=== PATIENT | male | born 1935 | race Caucasian/White ===

== ENCOUNTER 2017-08-09 22:23 | Observation (INO) | payer MEDICARE ==
[2017-08-09] MEDS ORDERED: NS 0.9% 1000 ML* 1,000 ML IV SCH (22:45)
[2017-08-09 23:27] LABS: Hematocrit 42 % (42-52); Mean Corpuscular HGB Conc 34 g/dl (31-36); Mean Corpuscular Hemoglobin 31 pg (27-31); Mean Corpuscular Volume 92 fL (80-94); Mean Platelet Volume 8 um3 (7.4-10.4); Red Blood Count 4.55 10^6/ul (4.0-5.4); Red Cell Distribution Width 14 % (10.5-15); White Blood Count 11.6 10^3/ul (3.5-10.8)
[2017-08-09 23:41] LABS: Acetaminophen < 15 mcg/mL; Alcohol 20 mg/dL (<10); Salicylate < 2.50 mg/dL (<30)
[2017-08-09 23:42] LABS: ALT 24 U/L (7-52); AST 27 U/L (13-39); Albumin 4.3 g/dL (3.2-5.2); Alkaline Phosphatase 62 U/L (34-104); Anion Gap 10 mmol/L (2-11); Blood Urea Nitrogen 22 mg/dL (6-24); C Reactive Protein 9.29 mg/L (< 5.00); CO2 Carbon Dioxide 22 mmol/L (22-32); Calcium 9.5 mg/dL (8.6-10.3); Chloride 98 mmol/L (101-111); Creatine Kinase 52 U/L (10-223); EGFR African American 73.1 (>60); EGFR Non-African American 56.9 (>60); Globulin 2.9 g/dL (2-4); Glucose 105 mg/dL (70-100); Lipase 11 U/L (11.0-82.0); Magnesium 2.3 mg/dL (1.9-2.7); Potassium 4.2 mmol/L (3.5-5.0); Sodium 130 mmol/L (133-145); Total Protein 7.2 g/dL (6.4-8.9)
[2017-08-09 23:51] LABS: TSH (Thyroid Stimulating Horm) 5.11 mcIU/mL (0.34-5.60)
[2017-08-10] MEDS ORDERED: Iodixanol* (CONTRAST) 320 MG/ML 100 ML SDV IV ONE (00:52)
[2017-08-10] MEDS ORDERED: Acetaminophen TAB* 325 MG PO ONE (03:22)
[2017-08-10 03:49] LABS: Urine Bilirubin Negative (Negative); Urine Glucose Negative (Negative); Urine Nitrite Negative (Negative)
--- NOTE | 2017-08-10 04:06 | HP ---
H&P (Free Text) History and Physical: PCP: Agustin Louis MD Hematology: Angie Allen MD Cardiology: Dr Moss Date/Time: 08/10/2017 0424 CC: abdominal pain, syncope HPI: Mr Rosas is an 82YO male who went out to let his horses out, but was not exerting himself when he developed non-radiating band-like upper abdominal sharp/cramping pain. He walked back to his house and sat down. The next thing he knew he woke up thinking he had broken out in a sweat, but upon arrival to ED it was determined he had vomited. He thinks he may have lost control of his bladder as well, but is uncertain. He denies chest pain, SOB, palpitations, nausea, light-headedness, F/C, cough, congestion, or other issues. He has been having trouble with constipation and is considering starting a stool softener. He has no history of similar. 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 anxiety BPH HLD detached retina L1/T12 compression FXs temporal arteritis Ambulatory Orders Cholecalciferol [Vitamin D] 1,000 unit PO QAM 11/27/12 Folic Acid 1 mg PO QAM 11/27/12 Methotrexate TAB* 10 mg PO WEEKLY 11/27/12 Oyster Shell [Calcium] 2 mg PO QAM 11/27/12 Prednisone 5 mg PO QAM 11/27/12 Tamsulosin CAP* [Flomax CAP*] 0.4 mg PO QAM 11/27/12 Timolol 0.5% OPTH.MAYA* [Timoptic 0.5% Opth*] 1 drop BOTH EYES QAM 11/27/12 Travoprost Z 0.004% OPHTH (NF) [Travatan Z 0.004% OPTH (NF)] 1 drop BOTH EYES BEDTIME 11/27/12 Venlafaxine HCl [Venlafaxine HCl ER] 300 mg PO QAM 11/27/12 Allergies No Known Allergies Allergy (Verified 08/10/17 02:54) PSurgHx ORIF R elbow septoplasty benign tumor excision R submandibular tonsillectomy OU cataracts SocHx: quit pipe ~10 years ago, 5-6 beers/day, no recreational drugs; , lives alone; DNR/I code status, MOLST filled out FamHx: Mother passed in her 70s of "natural causes". Father passed at 89 of " old age". Siblings: a brother passed of COPD, another is alive with COPD ROS: as above, otherwise reviewed and all were negative vitals: Vital Signs Temp 36.2 C 08/09/17 22:30 Pulse 93 08/10/17 04:51 Resp 18 08/10/17 04:51 BP 121/76 08/10/17 04:51 Pulse Ox 94 08/10/17 04:51 Intake & Output 08/09/17 08/09/17 08/10/17 11:59 23:59 11:59 Intake Total 1000 Balance 1000 Weight 77.111 kg Intake: IV Fluids 1000 Constitutional: NAD, normally developed, well-nourished white male HEENM: atraumatic; sclera/conjunctiva: non-icteric/clear; hearing: clinically intact; oropharynx: clear, mucosa moist Neck: soft tissue: non-tender; thyroid: normal Pulmonary: clear to auscultation bilaterally, good aeration, no accessory muscle use CV: RR/RR, normal S1S2, no carotid bruit, no jugular venous distention, 2+ B DP/ PT, no edema Abdominal: soft, non-distended, non-tender, no rebound/guarding/rigidity, normoactive bowel sounds, no hepatosplenomegaly or masses, no costovertebral angle tenderness Musculoskeletal: general: no palpable tenderness or restricted motion noted Integumental: normal appearance and texture of exposed skin Psychiatric orientation: AA&O to PPS affect: calm mood: cooperative eye contact: good content: reliable responses: timely insight: good Testing: Laboratory Results - last 24 hr 08/09/17 08/09/17 08/09/17 23:05 23:05 23:05 WBC 11.6 H RBC 4.55 Hgb 14.0 Hct 42 MCV 92 MCH 31 MCHC 34 RDW 14 Plt Count 231 MPV 8 Neut % (Auto) 78.4 Lymph % (Auto) 11.8 L [place] % (Auto) 8.8 Eos % (Auto) 0.3 Baso % (Auto) 0.7 Absolute Neuts (auto) 9.1 H Absolute Lymphs (auto) 1.4 Absolute Monos (auto) 1.0 H Absolute Eos (auto) 0 Absolute Basos (auto) 0.1 Absolute Nucleated RBC 0 Nucleated RBC % 0 INR (Anticoag Therapy) 0.93 APTT 26.7 D-Dimer, Quantitative < 200 Sodium 130 L Potassium 4.2 Chloride 98 L Carbon Dioxide 22 Anion Gap 10 BUN 22 Creatinine 1.22 H Est GFR ( Amer) 73.1 Est GFR (Non-Af Amer) 56.9 BUN/Creatinine Ratio 18.0 Glucose 105 H Lactic Acid Calcium 9.5 Magnesium 2.3 Total Bilirubin 0.40 AST 27 ALT 24 Alkaline Phosphatase 62 Total Creatine Kinase 52 CK-MB (CK-2) 3.2 Troponin I 0.00 C-Reactive Protein 9.29 H Total Protein 7.2 Albumin 4.3 Globulin 2.9 Albumin/Globulin Ratio 1.5 Lipase 11 TSH 5.11 Urine Color Urine Appearance Urine pH Ur Specific [place] Urine Protein Urine Ketones Urine Blood Urine Nitrate Urine Bilirubin Urine Urobilinogen Ur Leukocyte Esterase Urine Glucose Salicylates < 2.50 Acetaminophen < 15 Serum Alcohol 20 H 08/09/17 08/10/17 23:05 03:30 WBC RBC Hgb Hct MCV MCH MCHC RDW Plt Count MPV Neut % (Auto) Lymph % (Auto) [place] % (Auto) Eos % (Auto) Baso % (Auto) Absolute Neuts (auto) Absolute Lymphs (auto) Absolute Monos (auto) Absolute Eos (auto) Absolute Basos (auto) Absolute Nucleated RBC Nucleated RBC % INR (Anticoag Therapy) APTT D-Dimer, Quantitative Sodium Potassium Chloride Carbon Dioxide Anion Gap BUN Creatinine Est GFR ( Amer) Est GFR (Non-Af Amer) BUN/Creatinine Ratio Glucose Lactic Acid 2.0 Calcium Magnesium Total Bilirubin AST ALT Alkaline Phosphatase Total Creatine Kinase CK-MB (CK-2) Troponin I C-Reactive Protein Total Protein Albumin Globulin Albumin/Globulin Ratio Lipase TSH Urine Color Straw Urine Appearance Clear Urine pH 6.0 Ur Specific [place] 1.040 H Urine Protein Negative Urine Ketones 1+ H Urine Blood Negative Urine Nitrate Negative Urine Bilirubin Negative Urine Urobilinogen Negative Ur Leukocyte Esterase Negative Urine Glucose Negative Salicylates Acetaminophen Serum Alcohol ECG, personally reviewed: 1st degree AV block, rate 74, no ischemia CXR, personally reviewed: no acute process CTA chest/abd/pel, personally reviewed: 1.1cm nodule or nodular scar right upper lobe, advise follow up. No pulmonary embolism. No aortic dissection or aneurysm. No pneumonia or pleural effusions. Emphysematous changes. Coronary artery disease. Gastroesophageal reflux. Probable incidental duodenal diverticulum. No bowel obstruction, colitis, free fluid, or free air. Normal appendix. Diverticulosis colon without acute diverticulitis. Unremarkable pancreas, kidneys, and gallbladder. Small bowel projecting into bilateral inguinal region hernias, which also contain fat. Bilateral L5 spondylosis with grade 1 anterolisthesis L5/S1. Impression: 82M presenting with abdominal pain and suspected syncope DIAGNOSIS & PLAN Primary abdominal pain and suspected syncope, dDX: likely vasovagal syncope vs arrhythmia vs less likely ACS or seizure : telemetry : trend troponin : check ECHO to evaluate for valvular issues : consider GI consult if abdominal pain returns & work up is otherwise negative : supportive care Secondary constipation : start docusate elevated serum [place] & Lambda light chains elevated serum IgA : continue outpatient surveillance with Angie Allen MD advanced glaucoma : continue outpatient surveillance BPH : continue tamsulosin HLD : heart healthy no caffeine diet temporal arteritis : continue prednisone Admission Rational: observation for abdominal pain & syncope DVTp: heparin SQ Code Status: DNR/I, MOLST filled out HCP: Thao Trevino
[2017-08-10] MEDS ORDERED: Albuterol 2.5 MG/3 ML NEB.SOL* (0.083%) INH PRN (04:36)
[2017-08-10] MEDS ORDERED: Acetaminophen TAB* 325 MG PO PRN (04:36)
[2017-08-10] MEDS ORDERED: Ondansetron INJ* 2 MG/ML VIAL IV PRN (04:36)
[2017-08-10] MEDS ORDERED: NS 0.9% 1000 ML* 1,000 ML IV SCH (04:45)
[2017-08-10] MEDS ORDERED: Omeprazole CAP* 20 MG PO SCH (06:00)
[2017-08-10] MEDS ORDERED: Heparin VIAL(*) 5000 UNITS/ML VIAL (FIVE THOUSAND) SUBCUT SCH (06:00)
[2017-08-10 06:22] LABS: Hematocrit 42 % (42-52); Hemoglobin 13.9 g/dl (14.0-18.0); Mean Corpuscular HGB Conc 33 g/dl (31-36); Mean Corpuscular Hemoglobin 30 pg (27-31); Mean Corpuscular Volume 91 fL (80-94); Mean Platelet Volume 8 um3 (7.4-10.4); Red Blood Count 4.57 10^6/ul (4.0-5.4); Red Cell Distribution Width 14 % (10.5-15); White Blood Count 11.9 10^3/ul (3.5-10.8)
--- NOTE | 2017-08-10 06:41 | ED ---
Lorna Estes Rebecca, scribed for Himanshu García MD on 08/09/17 at 2249 . Abdominal Pain/Male - HPI Summary HPI Summary: This is an 82 yo male presenting with complaints of upper abdominal pain/lower chest pain that began around 1930 this evening. He reports that he was sitting in his chair just watching tv when he developed the pain suddenly. He rates the pain was a 2/10 at onset. He also notes associated diaphoresis before passing out. He vomited on himself as well, but reports he does not remember this. The pain has resolved at this point. He denies any palpitations prior to passing out. - History of Current Complaint Chief Complaint: EDAbdPain Stated Complaint: CHEST PAIN Time Seen by Provider: 08/09/17 22:37 Hx Obtained From: Patient Onset/Duration: Sudden Onset Timing: Lasting Minutes Severity Initially: Mild Severity Currently: None Pain Intensity: 2 Pain Scale Used: 0-10 Numeric Location: Epigastric, Other - Lower chest pain Radiates: No Aggravating Factor(s): Nothing Alleviating Factor(s): Nothing Associated Signs And Symptoms: Positive: Diaphoresis, Nausea, Vomiting - Allergies/Home Medications Allergies/Adverse Reactions: Allergies Allergy/AdvReac Type Severity Reaction Status Date / Time No Known Allergies Allergy Verified 08/10/17 02:54 PMH/Surg Hx/FS Hx/Imm Hx Cardiovascular History: Denies: Hx Myocardial Infarction Musculoskeletal History: Reports: Hx Arthritis Sensory History: Reports: Hx Contacts or Glasses - GLASSES, Hx Glaucoma Denies: Hx Hearing Aid Opthamlomology History: Reports: Hx Contacts or Glasses - GLASSES, Hx Glaucoma - Surgical History Surgery Procedure, Year, and Place: 1990 ? PAROTID GLAND REMOVED [facility]. 1994 SEPTOPLASTY [facility]. 2005 RT HAND DUPUYTRENS AND ELBOW [facility]. 2005 LT HAND [facility]. 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 UP ARTIST Hx Anesthesia Reactions: No - Family History Known Family History: Negative: Cardiac Disease - Social History Alcohol Use: Daily Substance Use Type: Reports: None Smoking Status (MU): Never Smoked Tobacco Review of Systems Positive: Chest Pain Positive: Abdominal Pain, Vomiting Positive: Other - diaphoresis All Other Systems Reviewed And Are Negative: Yes Physical Exam - Summary Physical Exam Summary: General: well-appearing, no pain distress Skin: warm, color reflects adequate perfusion, dry Head: normal Eyes: EOMI, KELLEN ENT: normal Neck: supple, nontender Respiratory: CTA, breath sounds present Cardiovascular: RRR Abdomen: soft, mild lower abdominal tenderness. Normal bowel sounds. Bowel: present Musculoskeletal: normal, strength/ROM intact Neurological: normal, sensory/motor intact, A&O x3 Psychological: affect/mood appropriate Vital Signs On Initial Exam: Initial Vitals Temp Pulse Resp BP Pulse Ox 97.1 F 70 18 119/74 97 08/09/17 22:30 08/09/17 22:30 08/09/17 22:30 08/09/17 22:30 08/09/17 22:30 Diagnostics - Vital Signs Vital Signs Temp Pulse Resp BP Pulse Ox 08/09/17 22:30 97.1 F 70 18 119/74 97 - Laboratory Lab Results: Lab Results 08/09/17 08/09/17 08/09/17 Range/Units 23:05 23:05 23:05 WBC 11.6 H (3.5-10.8) 10^3/ul RBC 4.55 (4.0-5.4) 10^6/ul Hgb 14.0 (14.0-18.0) g/dl Hct 42 (42-52) % MCV 92 (80-94) fL MCH 31 (27-31) pg MCHC 34 (31-36) g/dl RDW 14 (10.5-15) % Plt Count 231 (150-450) 10^3/ul MPV 8 (7.4-10.4) um3 Neut % (Auto) 78.4 (38-83) % Lymph % (Auto) 11.8 L (25-47) % [place] % (Auto) 8.8 (1-9) % Eos % (Auto) 0.3 (0-6) % Baso % (Auto) 0.7 (0-2) % Absolute Neuts (auto) 9.1 H (1.5-7.7) 10^3/ul Absolute Lymphs (auto) 1.4 (1.0-4.8) 10^3/ul Absolute Monos (auto) 1.0 H (0-0.8) 10^3/ul Absolute Eos (auto) 0 (0-0.6) 10^3/ul Absolute Basos (auto) 0.1 (0-0.2) 10^3/ul Absolute Nucleated RBC 0 10^3/ul Nucleated RBC % 0 INR (Anticoag Therapy) 0.93 (0.89-1.11) APTT 26.7 (26.0-36.3) seconds D-Dimer, Quantitative < 200 (Less Than 230) ng/mL Sodium 130 L (133-145) mmol/L Potassium 4.2 (3.5-5.0) mmol/L Chloride 98 L (101-111) mmol/L Carbon Dioxide 22 (22-32) mmol/L Anion Gap 10 (2-11) mmol/L BUN 22 (6-24) mg/dL Creatinine 1.22 H (0.67-1.17) mg/dL Est GFR ( Amer) 73.1 (>60) Est GFR (Non-Af Amer) 56.9 (>60) BUN/Creatinine Ratio 18.0 (8-20) Glucose 105 H (70-100) mg/dL Lactic Acid (0.5-2.0) mmol/L Calcium 9.5 (8.6-10.3) mg/dL Magnesium 2.3 (1.9-2.7) mg/dL Total Bilirubin 0.40 (0.2-1.0) mg/dL AST 27 (13-39) U/L ALT 24 (7-52) U/L Alkaline Phosphatase 62 (34-104) U/L Total Creatine Kinase 52 (10-223) U/L CK-MB (CK-2) 3.2 (0.6-6.3) ng/mL Troponin I 0.00 (<0.04) ng/mL C-Reactive Protein 9.29 H (< 5.00) mg/L Total Protein 7.2 (6.4-8.9) g/dL Albumin 4.3 (3.2-5.2) g/dL Globulin 2.9 (2-4) g/dL Albumin/Globulin Ratio 1.5 (1-3) Lipase 11 (11.0-82.0) U/L TSH 5.11 (0.34-5.60) mcIU/mL Urine Color Urine Appearance Urine pH (5-9) Ur Specific [place] (1.010-1.030) Urine Protein (Negative) Urine Ketones (Negative) Urine Blood (Negative) Urine Nitrate (Negative) Urine Bilirubin (Negative) Urine Urobilinogen (Negative) Ur Leukocyte Esterase (Negative) Urine Glucose (Negative) Salicylates < 2.50 (<30) mg/dL Acetaminophen < 15 mcg/mL Serum Alcohol 20 H (<10) mg/dL 08/09/17 08/10/17 Range/Units 23:05 03:30 WBC (3.5-10.8) 10^3/ul RBC (4.0-5.4) 10^6/ul Hgb (14.0-18.0) g/dl Hct (42-52) % MCV (80-94) fL MCH (27-31) pg MCHC (31-36) g/dl RDW (10.5-15) % Plt Count (150-450) 10^3/ul MPV (7.4-10.4) um3 Neut % (Auto) (38-83) % Lymph % (Auto) (25-47) % [place] % (Auto) (1-9) % Eos % (Auto) (0-6) % Baso % (Auto) (0-2) % Absolute Neuts (auto) (1.5-7.7) 10^3/ul Absolute Lymphs (auto) (1.0-4.8) 10^3/ul Absolute Monos (auto) (0-0.8) 10^3/ul Absolute Eos (auto) (0-0.6) 10^3/ul Absolute Basos (auto) (0-0.2) 10^3/ul Absolute Nucleated RBC 10^3/ul Nucleated RBC % INR (Anticoag Therapy) (0.89-1.11) APTT (26.0-36.3) seconds D-Dimer, Quantitative (Less Than 230) ng/mL Sodium (133-145) mmol/L Potassium (3.5-5.0) mmol/L Chloride (101-111) mmol/L Carbon Dioxide (22-32) mmol/L Anion Gap (2-11) mmol/L BUN (6-24) mg/dL Creatinine (0.67-1.17) mg/dL Est GFR ( Amer) (>60) Est GFR (Non-Af Amer) (>60) BUN/Creatinine Ratio (8-20) Glucose (70-100) mg/dL Lactic Acid 2.0 (0.5-2.0) mmol/L Calcium (8.6-10.3) mg/dL Magnesium (1.9-2.7) mg/dL Total Bilirubin (0.2-1.0) mg/dL AST (13-39) U/L ALT (7-52) U/L Alkaline Phosphatase (34-104) U/L Total Creatine Kinase (10-223) U/L CK-MB (CK-2) (0.6-6.3) ng/mL Troponin I (<0.04) ng/mL C-Reactive Protein (< 5.00) mg/L Total Protein (6.4-8.9) g/dL Albumin (3.2-5.2) g/dL Globulin (2-4) g/dL Albumin/Globulin Ratio (1-3) Lipase (11.0-82.0) U/L TSH (0.34-5.60) mcIU/mL Urine Color Straw Urine Appearance Clear Urine pH 6.0 (5-9) Ur Specific [place] 1.040 H (1.010-1.030) Urine Protein Negative (Negative) Urine Ketones 1+ H (Negative) Urine Blood Negative (Negative) Urine Nitrate Negative (Negative) Urine Bilirubin Negative (Negative) Urine Urobilinogen Negative (Negative) Ur Leukocyte Esterase Negative (Negative) Urine Glucose Negative (Negative) Salicylates (<30) mg/dL Acetaminophen mcg/mL Serum Alcohol (<10) mg/dL Result Diagrams: 08/10/17 06:05 08/09/17 23:05 Lab Statement: Any lab studies that have been ordered have been reviewed, and results considered in the medical decision making process. - Radiology CXR Xray Interpretation: Positive (See Comments) - Small left pleural effusion. No other changes. Radiology Interpretation Completed By: ED Physician - CT CT Abd/Pelvis/Chest CT Interpretation: No Acute Changes - Chest: 1.1 cm nodule or nodular scar right upper lobe, advise follow up. No pulmonary embolism. No aortic dissection or aneurysm. No pneumonia or pleural effusions. Emphysematous changes. Coronary artery disease. Gastroesophageal reflux. Abdomen/Pelvis Probably incidental duodenal diverticulum. No bowel obstruction, colitis, free fluid or free air. Normal appendix. Diverticulosis colon without acute diverticulitis. Unremarkable pancreas, kidneys and gallbladder. Small bowel projecting into bilateral inguinal region hernias, which contain fat. 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 NO CRITICAL CARE TIME. - Diagnoses Provider Diagnoses: Syncope, Abdominal pain Discharge - Discharge Plan Condition: Stable Disposition: ADMITTED TO [facility] The documentation as recorded by the Lorna medel Rebecca accurately reflects the service I personally performed and the decisions made by , Himanshu García MD.
--- NOTE | 2017-08-10 07:28 | RAD ---
INDICATION: Syncope. COMPARISON: Comparison is made with a prior chest x-ray study from January 04, 2005. TECHNIQUE: A portable view of the chest was obtained. FINDINGS: Cardiac and mediastinal contours appear to be within normal limits. The lungs are clear. No pleural effusion is seen. IMPRESSION: NO EVIDENCE FOR ACUTE DISEASE.
[2017-08-10] MEDS ORDERED: Venlafaxine EXT RELEASE CAP* 75 MG PO SCH (09:00)
[2017-08-10] MEDS ORDERED: Tamsulosin CAP* 0.4 MG PO SCH (09:00)
[2017-08-10] MEDS ORDERED: Docusate CAP* 100 MG PO SCH (09:00)
[2017-08-10] MEDS ORDERED: Timolol 0.5% OPTH.SOL* BTL BOTH EYES SCH (09:00)
--- NOTE | 2017-08-10 09:21 | RAD ---
Indication: Lower chest and upper abdominal pain with syncope. Contrast: Administered 97.3 ml of VISAPAQUE 320 mg/ml CTA of the chest was performed after IV contrast administration. CT of the abdomen and pelvis was performed. The pulmonary arterial tree is well opacified. There are no filling defects present to suggest pulmonary embolus. The heart demonstrates no pericardial effusion. The trachea and major bronchi appear patent. Left basilar atelectasis is noted. Emphysematous changes are noted. The thoracic aorta demonstrates no aneurysmal dilatation or aortic dissection. CT of the abdomen and pelvis demonstrates the liver to be normal in size. No focal lesions or intrahepatic duct dilatation is noted. The gallbladder demonstrates no calcified gallstones. No pericholecystic fluid or wall thickening is noted. The spleen is normal in size. No adrenal lesions are noted. The kidneys demonstrate symmetric nephrograms without focal lesions. Aorta and inferior vena cava are unremarkable. No retroperitoneal lymphadenopathy is noted. No dilated loops of bowel are noted. The colon is filled with stool. CT of the pelvis demonstrates no retroperitoneal or pelvic lymphadenopathy. The urinary bladder is unremarkable. There are bilateral inguinal hernias noted. The prostate is prominent in size. IMPRESSION: 1. No evidence of pulmonary embolus is noted. 2. Nodular scarring is noted in the upper lobes bilaterally. Bibasilar atelectasis is noted. No evidence of aortic dissection is noted. 3. Bilateral inguinal hernias are noted. No evidence of bowel obstruction is noted.
[2017-08-10] MEDS ORDERED: Sucralfate TAB* 1 GM PO SCH (11:30)
[2017-08-10 12:12] LABS: Hematocrit 43 % (42-52); Hemoglobin 14.5 g/dl (14.0-18.0); Mean Corpuscular HGB Conc 33 g/dl (31-36); Mean Corpuscular Hemoglobin 31 pg (27-31); Mean Corpuscular Volume 92 fL (80-94); Mean Platelet Volume 8 um3 (7.4-10.4); Red Blood Count 4.72 10^6/ul (4.0-5.4); Red Cell Distribution Width 14 % (10.5-15); White Blood Count 9.9 10^3/ul (3.5-10.8)
[2017-08-10 12:26] LABS: EGFR African American 98.8 (>60); EGFR Non-African American 76.8 (>60)
--- NOTE | 2017-08-10 12:34 | ECHO ---
Patient: GAETANO SIFUENTES [facility] Rec#: [id number] : 1935 Date: 08/10/2017 Age: 82y Height: 172.72 cm / 68.0 in Weight: 77.11 kg / 170.0 lbs Sex: M BSA: 1.91 Room#: ICU7 Admit Date#: 08/10/2017 Type: Inpatient Referring: Chris Dunlap MD Reading: Brisa Christopher MD Bed Machine Operator: Jill Bartholomew HEATHER CC: Alexis Louis MD Transthoracic Echocardiogram Indication: SYNCOPE BP: 136/76 HR: 65 Rhythm: NSR Findings History: Anxiety,HLD,syncope. Technical Comments: The study quality is good. Completed at 0900. Left Ventricle: The left ventricular chamber size is normal. Global left ventricular wall motion and contractility are within normal limits. There is normal left ventricular systolic function. The estimated ejection fraction is 60-65%. Abnormal left ventricular diastolic function is observed. Left Atrium: The left atrial chamber size is normal. Right Ventricle: The right ventricular cavity size is normal. The right ventricular global systolic function is normal. Right Atrium: The right atrial cavity size is normal. Aortic Valve: The aortic valve leaflets are mildly thickened. There is mild aortic regurgitation. There is no evidence of aortic stenosis. Mitral Valve: The mitral valve leaflets are mildly thickened. There is a trace of mitral regurgitation. There is no evidence of mitral stenosis. Tricuspid Valve: The tricuspid valve leaflets are normal. There is mild tricuspid regurgitation. No pulmonary hypertension is noted. There is no tricuspid stenosis. Pulmonic Valve: The pulmonic valve appears normal. There is trace to mild pulmonic regurgitation. There is no pulmonic stenosis. Pericardium: A pericardial fat pad is visualized. Aorta: There is mild dilatation of the ascending aorta. There is no dilatation of the aortic arch. There is no dilation of the aortic root. Pulmonary Artery: The main pulmonary artery appears normal. Venous: The venous system is not well visualized. Conclusions Global left ventricular wall motion and contractility are within normal limits. The estimated ejection fraction is 60-65%. Abnormal left ventricular diastolic function is observed. The right ventricular global systolic function is normal. There is mild aortic regurgitation. There is a trace of mitral regurgitation. There is mild tricuspid regurgitation. No pulmonary hypertension is noted. Mild dilatation of the ascending aorta 3.6 cm. No prior study to compare. Measurements Name Value Normal Range RVIDd (AP) 2D 2.7 cm (0.9 - 2.6) RVDdMajor (2D) 3.3 cm (2.2 - 4.4) RAd ISD 4CH 4.4 cm (3.4 - 4.9) RA (A4C)W 3.6 cm (2.9 - 4.6) IVSd (2D) 0.8 cm (0.6 - 1) LVPWd (2D) 0.9 cm (0.6 - 1) LVIDd (2D) 3.5 cm (3.6 - 5.4) LVIDs (2D) 1.8 cm - LV FS (2D) 49 % (25 - 45) Aortic Annulus 1.7 cm (1.4 - 2.6) Ao root diameter (2D) 3.1 cm (2.1 - 3.5) Ascending Ao 3.6 cm (2.1 - 3.4) Aortic arch 2.2 cm (1.8 - 3.4) Descending Ao 0.5 cm - LA dimension (AP) 2D 3.6 cm (2.3 - 3.8) LAd ISD 4CH 4.3 cm (2.9 - 5.3) LA ISD 4CH W 3.1 cm (2.5 - 4.5) Name Value Normal Range LA ESV SP 4CH (A/L) 24 ml - LA ESV SP 2CH (A/L) 29 ml - LA ESV BP (A/L) 27 ml - LA ESV BP (A/L) index 14.23 ml/m2 - LA ESV SP 4CH (MOD) 20 ml - LA ESV SP 2CH (MOD) 25 ml - Name Value Normal Range MV E-wave Vmax 0.7 m/sec - MV deceleration time 179 msec - MV A-wave Vmax 1 m/sec - MV E:A ratio 0.66 ratio - LV septal e' Vmax 0.06 m/sec - LV lateral e' Vmax 0.07 m/sec - LV E:e' septal ratio 11.67 ratio - LV E:e' lateral ratio 10 ratio - Name Value Normal Range AV Vmax 1.2 m/sec - AV VTI 28.7 cm - AV peak gradient 5.51 mmHg - AV mean gradient 3.18 mmHg - LVOT diameter 2 cm - LVOT Vmax 0.9 m/sec - LVOT VTI 21.6 cm - LVOT peak gradient 3.12 mmHg - LVOT mean gradient 1.48 mmHg - FERNANDA (continuity Vmax) 2.3 cm2 - FERNANDA (continuity VTI) 2.3 cm2 - AR PHT 477 msec - AR peak gradient 29.28 mmHg - Name Value Normal Range TR Vmax 2.4 m/sec - TR peak gradient 24 mmHg - RAP 8 mmHg - RVSP 32 mmHg - Name Value Normal Range PV Vmax 0.7 m/sec - PV peak gradient 2.13 mmHg -
[2017-08-10 13:03] VITALS: BP 126/62
--- NOTE | 2017-08-10 13:07 | DCNOTE ---
Patient seen this morning. Reported feeling well. Had some mild recurrence of abdominal pain overnight that resolved with tylenol. Says he drinks 6 beers/ night, also on steroids for temporal arteritis. Ambulated around the unit with no issues, weaned off of O2. On exam, RRR, s1 and s2 present, no m/g/r, abd soft, NTND, BS+, lungs CTA B/L, no w/r/r Suspect patient may have underlying gastritis (from EtOH and steroids) that caused the pain. ?possible syncopal episode but echo and tele unremarkable. Recommended decrease in EtOH use, will also increase Protonix temporarily. Needs to f/u with PCP.
[2017-08-10] MEDS ORDERED: Latanoprost 0.005%* 2.5 ml BTL BOTH EYES SCH (21:00)
--- NOTE | 2017-08-11 06:42 | DS ---
CC: Dr. Louis * DISCHARGE SUMMARY: DATE OF ADMISSION: 08/09/17 DATE OF DISCHARGE: 08/10/17 PRIMARY CARE PHYSICIAN: Dr. Louis. PRINCIPAL DISCHARGE DIAGNOSES: 1. Gastritis. 2. Abdominal pain. 3. Questionable syncope. 4. Nausea and vomiting. SECONDARY DIAGNOSES: 1. 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 2. Anxiety. 3. Benign prostatic hyperplasia. 4. Hyperlipidemia. 5. Temporal arteritis. DISCHARGE MEDICATION REGIMEN: 1. Protonix 40 mg by mouth 3 times daily. 2. Carafate 1 g by mouth with meals. 3. Vitamin D 1000 units by mouth daily. 4. Folic acid 1 mg by mouth daily. 5. Methotrexate 10 mg by mouth weekly. 6. Oyster shell by mouth daily. 7. Prednisone 5 mg by mouth daily. 8. Tamsulosin 0.4 mg by mouth daily. 9. Timolol 1 drop both eyes daily. 10. Travoprost 1 drop both eyes at bedtime. 11. Venlafaxine 300 mg by mouth daily. STUDIES DONE DURING HOSPITALIZATION: Chest x-ray, impression: No evidence for acute disease. CT of the chest, abdomen, and pelvis with contrast, impression: No evidence of pulmonary embolus. Nodular scarring is noted in the upper lobes bilaterally, bibasilar atelectasis noted. No evidence of aortic dissection. Bilateral inguinal hernias are noted. No evidence of bowel obstruction. Transthoracic echocardiogram, conclusions: Global left ventricular wall motion and contractility are within normal limits. The estimated ejection fraction is 60% to 65%. Abnormal left ventricular diastolic function is observed. The right ventricular global systolic function is normal. There is mild aortic regurgitation, trace mitral regurgitation, mild tricuspid regurgitation. No pulmonary hypertension. Mild dilatation of the ascending aorta 3.6 cm. No prior study to compare. HISTORY OF PRESENT ILLNESS AND HOSPITAL SUMMARY: Please see the above history and physical by Dr. Chris Dunlap for full details. Briefly, Mr. Rosas is an 82- year-old man with past medical history as above, who presented to the hospital with epigastric pain that began shortly after he began drinking alcohol in the evening. The patient sat on his couch and is unclear if he fell asleep or passed out, but when he woke up, he thought that he had vomited on himself. He presented to the hospital. There was some concern of possible syncope. His troponins were trended and remained negative. He was monitored on telemetry with no acute events. Echocardiogram as above was largely unremarkable. The patient had no further syncopal episodes here in the hospital. His abdominal pain was treated with Tylenol. I feel that his pain is most likely due to gastritis secondary to alcohol use as well as chronic prednisone use. His PPI was increased and he was started on Carafate. He was encouraged to stop or at least drastically decrease his alcohol intake, which he states is about 6 beers per night. The patient was able to ambulate around the unit with no issues. He had 2 L of oxygen that were weaned off and did not experience any lightheadedness, dizziness, or shortness of breath on the day of discharge. He should follow up with his PCP as an outpatient. TIME SPENT: Total time spent on this discharge 35 minutes. This is a summary of the hospitalization, please see the full medical record for further details. [id number]/[facility] #: [id number] MTDD
[2017-08-16] MEDS ORDERED: Methotrexate TAB* 2.5 MG PO SCH (09:00)
== END 2017-08-10 14:45 | disposition home or self-care (01) ==
LOC: ED 22:23 → ICU 08-10 04:24
PROVIDERS: ADMIT Hospitalist; ATTEND Hospitalist
DX: K29.70 Gastritis, unspecified, without bleeding (principal); R74.8 Abnormal levels of other serum enzymes; N40.0 Benign prostatic hyperplasia without lower urinary tract symptoms; E78.5 Hyperlipidemia, unspecified; M31.6 Other giant cell arteritis; K40.20 Bilateral inguinal hernia, without obstruction or gangrene, not specified as recurrent; Z79.899 Other long term (current) drug therapy; Z87.891 Personal history of nicotine dependence; R94.31 Abnormal electrocardiogram [ECG] [EKG]; I51.9 Heart disease, unspecified
CPT/HCPCS: 36415; 71010; 71275; 74177; 80053; 80320; 80329; 81003; 82550; 82553; 82565; 83605; 83690; 83735; 84443; 84484; 84520; 85025; 85379; 85610; 85730; 86140; 87641; 93005; 93306; 96360; 96361; 96372; 99285; A9270-GY; G0378; G0480; J1644; Q9967

== ENCOUNTER 2018-08-30 07:14 | Day surgery (SDC) | payer MEDICARE ==
[~2018-08-30 07:14] MED LIST: Acetaminophen TAB* 325 MG PO PRN; Buffered Lidocaine 0.9% SYRIN* 5 ML/SYR SYRINGE INTRADERM ONE; mitoMYcin PWD* 0.2 MG in Sterile Water for Inj* 1 ML OPHTHALMIC SCH
[2018-08-30] MEDS ORDERED: Propofol* 10 MG/ML 20 ML BTL IV PUSH ONE (08:45)
[2018-08-30] MEDS ORDERED: Lidocaine 2% PF * 5 ML VIAL ONE (08:45)
[2018-08-30 09:06] VITALS: BP 108/64
[2018-08-30] MEDS ORDERED: acetaZOLAMIDE TAB* 250 MG ONE (15:44)
[2018-08-30] MEDS ORDERED: Cyclopentolate 1% OPTH.SOL* 2 ML BTL ONE (15:44)
[2018-08-30] MEDS ORDERED: Neomycin/Polymy/Dex OPTH.SUSP* MAXITROL 0.1% 5 ML ONE (15:44)
[2018-08-30] MEDS ORDERED: Lidocaine 2% EPI 1:200000 MPF*10-20 ML VIAL ONE (15:44)
[2018-08-30] MEDS ORDERED: Lidocaine 1%* 5 ML VIAL ONE (15:44)
[2018-08-30] MEDS ORDERED: Proparacaine 0.5% OPHTH.SOL* 15 ML BTL ONE (15:45)
[2018-08-30] MEDS ORDERED: Ketorolac 0.5% OPHTH (NF) 0.5 % 5 ML BTL ONE (15:45)
[2018-08-30] MEDS ORDERED: Povidone Iodine 5% OPTH* 30 ML BTL ONE (15:45)
[2018-08-30] MEDS ORDERED: Phenylephrine 2.5% OPTH.SOL* 2 ML BTL ONE (15:45)
--- NOTE | 2018-08-30 22:27 | OP ---
DATE OF OPERATION: 08/30/18 - [facility] DATE OF : 35 SURGEON: Chris Snider MD ANESTHESIA: Local MAC. PRE-OP DIAGNOSIS: Uncontrolled glaucoma, right eye. POST-OP DIAGNOSIS: Uncontrolled glaucoma, right eye. OPERATIVE PROCEDURE: XEN stent, right eye. COMPLICATIONS: None. DESCRIPTION OF PROCEDURE: The patient was prepped and draped in usual sterile fashion in the right eye. Lid speculum was placed. A paracentesis made at the 11 o'clock position with 20-gauge . Anterior chamber irrigated with 1 % non-preservative intracameral lidocaine and followed by [place]. Clear corneal incision 1.8 mm was made at the 7 o'clock position. Mitomycin-C 0.2 mg/ mL 0.1 mL was injected subconjunctivally securely. Then the XEN implant placed at 1 o'clock position without difficulty using its shooter. The anterior chamber was irrigated with balanced salt solution. Topical Maxitrol was given. [id number]/[facility] #: [id number] [facility]
== END 2018-08-30 09:23 | disposition home or self-care (01) ==
LOC: OREAST 07:14
PROVIDERS: ATTEND Specialist
DX: H40.1113 Primary open-angle glaucoma, right eye, severe stage (principal); I25.10 Atherosclerotic heart disease of native coronary artery without angina pectoris; E78.5 Hyperlipidemia, unspecified; Z87.891 Personal history of nicotine dependence; F41.8 Other specified anxiety disorders
CPT/HCPCS: A9270-GY; C1725; J2704; J9280

== ENCOUNTER 2018-09-06 06:55 | Day surgery (SDC) | payer MEDICARE ==
[~2018-09-06 06:55] MED LIST changes: +mitoMYcin 0.2 MG (0.02%) in Sterile Water for Inj* 1 ML OPHTHALMIC SCH; -mitoMYcin PWD* 0.2 MG in Sterile Water for Inj* 1 ML OPHTHALMIC SCH
[2018-09-06] MEDS ORDERED: Propofol* 10 MG/ML 20 ML BTL IV PUSH ONE (07:47)
[2018-09-06] MEDS ORDERED: Lidocaine 2% PF * 5 ML VIAL ONE (07:47)
[2018-09-06] MEDS ORDERED: fentaNYL* 50 MCG/ML 2 ML VIAL (100 MCG VIAL) ONE (07:47)
[2018-09-06 08:47] VITALS: BP 122/64
--- NOTE | 2018-09-07 01:06 | OP ---
DATE OF OPERATION: 09/06/18 - [facility] DATE OF : 35 SURGEON: Chris Snider MD ANESTHESIA: Local with MAC. PRE-OP DIAGNOSIS: Uncontrolled left eye glaucoma. POST-OP DIAGNOSIS: OPERATIVE PROCEDURE: XEN Gel stent, left eye. COMPLICATIONS: None. DESCRIPTION OF PROCEDURE: The patient was prepped and draped in the usual sterile fashion. The speculum was placed. 2% lidocaine with epinephrine on the cornea. Paracentesis was made at the 2 o'clock position using a 75 blade. Anterior chamber irrigated with 1% non-preservative intracameral lidocaine followed by [place]. A 1.8 mm clear corneal incision was made at the 5 o'clock position. Mitomycin-C 0.2 mg/mL injected subconjunctivally in the superior fornix and XEN implant placed at the 11 o'clock position without difficulty. Anterior chamber irrigated with balanced salt solution. Topical Maxitrol drops were given. [id number]/[facility] #: [id number] MTDD
== END 2018-09-06 08:50 | disposition home or self-care (01) ==
LOC: OREAST 06:55
PROVIDERS: ATTEND Specialist
DX: H40.1123 Primary open-angle glaucoma, left eye, severe stage (principal); H40.1112 Primary open-angle glaucoma, right eye, moderate stage; I25.10 Atherosclerotic heart disease of native coronary artery without angina pectoris; E78.5 Hyperlipidemia, unspecified; F41.8 Other specified anxiety disorders; M31.6 Other giant cell arteritis
CPT/HCPCS: C1725; J2704; J3010; J9280